=== PATIENT | female | born 1950 | race Caucasian/White ===

== ENCOUNTER 2022-05-23 08:01 | Outpatient (CLI) | payer MEDICARE, SELFPAY ==
--- NOTE | 2022-05-23 08:14 | ECG_ITS ---
Measurements Intervals [place] Rate: 54 P: -4 AL: 130 QRS: 48 QRSD: 80 T: 33 QT: 418 QTc: 398 Interpretive Statements SINUS BRADYCARDIA OTHERWISE NORMAL ECG NO PREVIOUS ECG AVAILABLE FOR COMPARISON Electronically Signed On 05-23-2022 14:28:56 CDT by Dilshad Schreiber M.D.
== END 2022-05-23 08:02 | disposition home or self-care (01) ==
PROVIDERS: Visit Provider Urology
DX: Z01.818 Encounter for other preprocedural examination (principal); R32 Unspecified urinary incontinence; E78.00 Pure hypercholesterolemia, unspecified; R00.1 Bradycardia, unspecified
CPT/HCPCS: 87077; 87086; 87186; 93005

== ENCOUNTER 2022-05-27 00:24 | Day surgery (SDC) | payer MEDICARE, SELFPAY ==
[2022-05-16 14:24] VITALS: BMI 36.6
--- NOTE | 2022-05-16 14:25 | PC.NURSE ---
Report to the Outpatient Waiting Room, entrance under the green pavilion located off [facility], at time _0615_ on date _[id number]_. OR Time: _0815_. - You and your visitor will be asked a series of questions to screen for COVID 19 for your protection. - Only one visitor is allowed at this time. - The patient visitor is requested to leave or wait in car when not with patient. - A mask is required within the hospital. Patients may have clear liquids (water, carbonated beverages, clear teas, apple juice) until 3 hours prior to surgery with a maximum of 20 ounces. - No food from midnight until time of surgery Take the following medications with a SIP of water the morning of surgery: ____Levothyroxine Medications to discontinue per physician Vitamins Date to take last gbnq___[id number] Please no make-up, nail pakistani, hairspray, perfume, deodorant, or body powder the day of surgery. No jewelry (including any body piercings) or valuables the day of surgery, leave them at home. Please take a shower or bath the night before, or the morning of, surgery with an antibacterial soap. Wear comfortable, loose fitting clothing. - Jewelry must be removed prior to entering the operating room. Rings and piercings that are not removed may be cut off. - The hospital will not accept responsibility for valuables. - Please leave all valuables, including medications, at home the day of surgery. If you are going home after surgery, a licensed deliver driver must drive you home. - NO public transportation without another adult. - We recommend that an adult stay with you for 24 hours following discharge. - We also recommend that you do not drive, make important decision, drink alcoholic beverages, or take any drugs that were not prescribed by your health care provider for at least 24 hours after your discharge time. Follow any additional instructions given to you from your surgeon. If you or anyone in your household have experienced Covid symptoms in the past week, please notify your surgeon or the nurse liaison at the phone number below for possible testing. Telephone instructions given to _Patient___and asked if any additional questions and then verbalized understanding. Patient advised to call surgeon office or pre surgery nurse liaison [phone] if any additional questions.
--- NOTE | 2022-05-23 07:46 | PM.IMHP ---
H&P: HPI History of Present Illness Date/Time: 05/23/22 07:46 Chief Complaint: stress incontinence Narrative: 71-year-old with mixed incontinence. She desires treatment of her stress incontinence Review of Systems Review of Systems: All systems reviewed & are unremarkable except as noted in HPI and below PMFSH Social History Social History Smoking packs per day: 1 Smoking cigarettes per day: 20.0 Years smoked: 30 Smoking pack-years: 30.00 Smoking status: Former smoker Tobacco type: cigarettes Smoking end date: 05/16/02 Alcohol intake: current Spiritual care concerns: No Meds Home Medications and Allergies Home Medications Medication Instructions Recorded Confirmed Type atorvastatin 10 mg tablet 5 mg PO DAILY 05/16/22 05/16/22 History calcium carb-ergocalciferol (vit 1 tablet PO DAILY 05/16/22 05/16/22 History D2) 600 mg calcium-200 unit tablet cetirizine 10 mg tablet (Zyrtec) 10 mg PO HS PRN Allergy Symptoms 05/16/22 05/16/22 History levothyroxine 50 mcg tablet 50 mcg PO DAILY 05/16/22 05/16/22 History multivitamin 1 tablet PO DAILY 05/16/22 05/16/22 History Allergies Allergy/AdvReac Type Severity Reaction Status Date / Time No Known Allergies Allergy Verified 05/16/22 14:14 Exam Narrative: urethral mobility noted Assessment and Plan Assessment and plan (1) RAINER (stress urinary incontinence, female): Code(s): N39.3 - Stress incontinence (female) (male) Status: Acute Assessment and Plan: urethral sling. Understands risks of bleeding, infection, continued incontinence, voiding dysfunction, urinary tension, mesh exposure or extrusion, need for ancillary procedures. Agrees to proceed
[2022-05-27 06:59] VITALS: BP 138/69; PULSE 67; RESP 14; TEMP 36.4; O2SAT 98
--- NOTE | 2022-05-27 07:11 | WPDHPUPDATE1 ---
History and Physical Update Update Date/Time: 05/27/22 07:11 History and Physical has been reviewed, including an updated exam of the patient. There are NO changes in the patient's condition. Risks, benefits, and alternatives have been discussed and questions answered. Patient agrees to proceed with procedure.
[2022-05-27] MEDS: LACTATED RINGERS 1,000 ML 30 ML IV CONT (07:45)
--- NOTE | 2022-05-27 07:58 | WPDANESEPPF ---
Anes - Initial Pre Proc Eval Procedure: Operation Date: 05/27/22 08:15 Proposed Procedures p Urethral Sling - Domenico Li MD Date/Time: 05/27/22 07:58 Surgeon: Domenico Li MD Pre Op Diagnosis: Urinary Urge Incont Patient Data Age: 71 Gender: F Height: 1.57 m Weight: 89.4 kg Last Vital Signs Temp 36.4 C L 05/27/22 06:59 Pulse 67 05/27/22 06:59 Resp 14 05/27/22 06:59 BP 138/69 05/27/22 06:59 Pulse Ox 98 05/27/22 06:59 O2 Del Method Room Air 05/27/22 06:59 Allergies Allergy/AdvReac Type Severity Reaction Status Date / Time No Known Allergies Allergy Verified 05/27/22 07:03 Home Medications Medication Instructions Recorded Confirmed Type atorvastatin 10 mg tablet 5 mg PO DAILY 05/16/22 05/16/22 History calcium carb-ergocalciferol (vit 1 tablet PO DAILY 05/16/22 05/16/22 History D2) 600 mg calcium-200 unit tablet cetirizine 10 mg tablet (Zyrtec) 10 mg PO HS PRN Allergy Symptoms 05/16/22 05/16/22 History levothyroxine 50 mcg tablet 50 mcg PO DAILY 05/16/22 05/27/22 History multivitamin 1 tablet PO DAILY 05/16/22 05/16/22 History Patient hx anesthesia problems: none Family hx anesthesia problems: none Results Review: All pre-operative results and documents have been reviewed as part of the pre-operative evaluation. REPLACED BY [facility] Past Medical History Medical History Hyperlipidemia Hypothyroid Social History Social History Smoking packs per day: 1 Smoking cigarettes per day: 20.0 Years smoked: 30 Smoking pack-years: 30.00 Smoking status: Former smoker Tobacco type: cigarettes Smoking end date: 05/16/02 Alcohol intake: current Living arrangements: with family Spiritual care concerns: No Anes - Eval Final PreProcedure Day of Procedure 05/27/22 07:58 Patient weight: obese Heart: regular rate and rhythm Lungs: clear to auscultation Airway: Mallampati scale class II Neurological: alert and oriented Last oral intake: >/= 8 hours ASA classification: III Emergent: no Anesthetic plan: proceed Anesthesia type and monitoring: general LMA and standard monitoring Results Review: All pre-operative results and documents have been reviewed as part of the pre-operative evaluation. Informed Consent: The patient's anesthetic plan and its attendant risks and benefits were discussed with the patient/family/POA. Questions were solicited and answers provided to the satisfaction of the patient/family/POA.
[2022-05-27] MEDS: ceFAZolin 2 GM/D5W 50 ML 2 GM/50 ML BAG IVPB (08:10)
[2022-05-27] MEDS: BUPIVACAINE HCL 0.25% PF 30 ML VIAL 10 ML INFILTRATE (08:20)
--- NOTE | 2022-05-27 08:48 | P.OP_ITS ---
Procedure Note - Detailed Date of Procedure 05/27/22 Pre-op Diagnosis Stress urinary incontinence Post-op Diagnosis Same Procedure Performed mid urethral sling cystoscopy Surgeon Domenico Li MD [employer] None Anesthesia General Indications This is a female with confirm stress urinary incontinence. She desires surgical correction. She understands the risks of bleeding, infection, injury to the urinary tract, vaginal mesh extrusion, urinary tract mesh erosion, obstructive voiding requiring a secondary procedure, hip and leg pain, dyspareunia, inability to improve overactive bladder symptoms. She agrees to proceed. Findings Uncomplicated urethral sling Description of Procedure She was correctly identified. Informed consent obtained. She was brought the operating room. She was given appropriate anesthesia. She was given appropriate perioperative antibiotics. A time-out performed. I marked out the site of the inner thigh incisions. I anesthetized the skin and made those incisions. I anesthetized the anterior vaginal wall over the mid urethra. I made a 1 cm incision. I dissected out laterally taking great care not to injure the refilled vaginal wall. I passed the helical trocars. First on the left. Then on the right. I did this from the thigh incision towards the vaginal incision. The sling was connected to the trocars and brought out through the thigh incision. I tensioned the sling appropriately. I cut and the plastic sheaths. I then closed the incision with 2 0 Vicryl. On cystoscopy there is no tumors or surgical artifact. There was no surgical artifact in the urethra. I cut the excess sling material. Close incisions with glue. She was awakened and transferred to the PACU in stable condition. Implants Urethral sling Estimated Blood Loss 20 Drains No Packing No Pathology None sent Complications No immediate complications Condition Stable Disposition PACU
[2022-05-27 08:50] VITALS: BP 88/50; PULSE 74; RESP 12; O2SAT 93
[2022-05-27 09:03] VITALS: BP 99/53; PULSE 54; RESP 16; O2SAT 94
[2022-05-27 09:20] VITALS: BP 118/60; PULSE 57
== END 2022-05-27 09:47 | disposition home or self-care (01) ==
PROVIDERS: Visit Provider Urology
PROC: (CPT 57288; principal; 2022-05-27 08:15)
DX: N39.3 Stress incontinence (female) (male) (principal); E03.9 Hypothyroidism, unspecified; Z87.891 Personal history of nicotine dependence; E78.5 Hyperlipidemia, unspecified; E66.9 Obesity, unspecified; Z68.36 Body mass index [BMI] 36.0-36.9, adult
CPT/HCPCS: 57288; 87077; 87086; 87186; 93005; A9270; C1771; J0690; J2250; J2405; J2704; J3010; J7030; J7120